=== PATIENT | female | born 1980 | race Caucasian/White ===

== ENCOUNTER → 2019-08-16 | Outpatient (CLI) | payer OTHER ==
[~2019-08-16] MED LIST: IBU600 MG PO; MOTRIN 600600 MG/TAB PO; PERCOCET 325 MG1 TA2 PO; PRENATAL1 TA1 PO; VALTREX 50500 MG/TAB PO; [UNRECOGNIZED DRUG - OTHER]
== END ==
LOC: COL.RAD 10:07
DX: K82.4 Cholesterolosis of gallbladder (principal)

== ENCOUNTER → 2020-04-27 | Outpatient (CLI) | payer OTHER | LOC: MC.RAD 10:08 | DX: Z12.31 Encounter for screening mammogram for malignant neoplasm of breast (principal) ==

== ENCOUNTER → 2021-06-19 | Outpatient (CLI) | payer BC | LOC: MC.RAD 09:42 | DX: Z12.31 Encounter for screening mammogram for malignant neoplasm of breast (principal) ==

== ENCOUNTER → 2022-06-26 | Outpatient (CLI) | payer BC | LOC: COL.VAS 13:15 | DX: R55 Syncope and collapse (principal) ==

== ENCOUNTER → 2022-08-13 | Outpatient (CLI) | payer BC | LOC: MC.RAD 10:27 | DX: Z12.31 Encounter for screening mammogram for malignant neoplasm of breast (principal) ==

== ENCOUNTER → 2023-09-02 | Outpatient (CLI) | payer BC | LOC: MC.RAD 10:59 | DX: Z12.31 Encounter for screening mammogram for malignant neoplasm of breast (principal) ==